=== PATIENT | male | born 1945 ===

== ENCOUNTER 2020-05-06 13:25 | Outpatient (CLI) | payer MEDICARE ==
--- NOTE | 2020-05-06 14:35 | CT ---
CT CHEST WITHOUT CONTRAST: 05/06/20 INDICATIONS: Thoracic aneurysm. There are no comparison studies. FINDINGS: There is aneurysmal dilatation of the ascending thoracic aorta. Diameter is measured at 4.7 cm. The diameter of the thoracic aorta at the sinus of Valsalva is measured at 4.4 cm, slightly increased for male patient's up to 4.0. The sinotubular diameter is measured at 3.2 cm which is within normal range for male patients. The upper descending thoracic aorta measures 3.2 cm which is increased. The distal descending thorac ic aorta is measured at 3.0 cm which is within normal range. No evidence of mediastinal adenopathy. Pulmonary arteries are normal caliber. The lung mensah appear clear. No infiltrate or effusion. Mild increased interstitial markings periphe rally consistent with chronic change. Mild apical pleural thickening with some apical pleural nodular ity. Images through upper abdomen show unremarkable liver, spleen and pancreas is visualized. The left kidney is partially imaged and there is suggestion of dilatation of the left renal pelvis al though this is incompletely evaluated. Recommend renal ultrasound to further evaluate. Osseous structures unremarkable. IMPRESSION: 1. Aneurysmal dilatation of the ascending thoracic aorta. Thoracic aorta measurements are given above. 2. Mild chronic lung parenchymal changes or interstitial thickening seen in the periphery of bot h lungs. No acute lung process. 3. Images through the upper abdomen show question dilatation of the left renal pelvis which is i ncompletely imaged. Correlate with renal ultrasound exam. POS: MOOSE
== END 2020-05-06 13:26 | disposition home or self-care (01) ==
LOC: BICCT 13:25
PROVIDERS: ATTEND Thoracic Surgery (Cardiothoracic Vascular Surgery)
DX: I71.2 Thoracic aortic aneurysm, without rupture (principal)
CPT/HCPCS: 71250